=== PATIENT | male | born 1945 | race Caucasian/White ===

== ENCOUNTER → 2016-12-31 | Outpatient (CLI) | payer OTHER, MEDICARE ==
[~2016-12-31] VITALS: Ht 180.3 cm; Wt 115.7 kg
[~2016-12-31] MED LIST: ALEVE220 MG PO; LISINOPRIL10 MG PO; NORVASC 5 MG TAB5 MG PO
[2016-12-31 07:37] VITALS: BP 139/76
[2016-12-31 08:11] LABS: HEMATOCRIT 38.8 % (42.0-52.0); HEMOGLOBIN 13.2 gm/dL (14.0-18.0); MCH 30.9 pg (26.0-34.0); MCHC 33.9 g/dL (28.0-37.0); MCV 90.9 fL (80.0-100.0); RBC 4.27 mil/uL (4.50-6.00); RDW 13.7 % (10.5-14.5); WBC 5.6 thou/uL (4.0-11.0)
[2016-12-31 08:20] LABS: CALCIUM 8.6 mg/dL (8.5-10.1); CREATININE 1.4 mg/dL (0.7-1.3); POTASSIUM 4.1 mmol/L (3.5-5.1)
[2016-12-31 08:24] LABS: PROTIME 10.6 Seconds (9.3-11.4)
[2016-12-31 09:00] VITALS: BP 117/67
[2016-12-31 09:05] VITALS: BP 111/68
[2016-12-31 09:10] VITALS: BP 114/69
[2016-12-31 09:15] VITALS: BP 107/72
[2016-12-31 09:20] VITALS: BP 110/67
== END | disposition home or self-care (01) ==
LOC: CAT 07:01
PROVIDERS: Radiology Diagnostic Radiology
DX: M71.38 Other bursal cyst, other site (principal); M54.16 Radiculopathy, lumbar region; I10 Essential (primary) hypertension; Z96.652 Presence of left artificial knee joint; Z98.890 Other specified postprocedural states

== ENCOUNTER → 2017-08-04 | Outpatient (CLI) | payer OTHER, MEDICARE ==
[~2017-08-04] VITALS: Ht 180.3 cm; Wt 106.6 kg
[2017-08-04 08:38] VITALS: BP 158/70
[2017-08-04 09:15] VITALS: BP 117/73
[2017-08-04 09:25] VITALS: BP 122/74
[2017-08-04 09:30] VITALS: BP 120/68
[2017-08-04 09:34] VITALS: BP 109/59
[2017-08-04 09:35] VITALS: BP 95/66
== END | disposition home or self-care (01) ==
LOC: CAT 08:08
DX: M71.38 Other bursal cyst, other site (principal); I10 Essential (primary) hypertension

== ENCOUNTER → 2018-01-27 | Outpatient (CLI) | payer OTHER, MEDICARE ==
[2018-01-27] VITALS (8 sets, daily range): BP systolic 99–122; BP diastolic 55–63
[~2018-01-27] VITALS: Ht 177.8 cm; Wt 104.3 kg
== END | disposition home or self-care (01) ==
LOC: CAT 08:02
DX: M71.38 Other bursal cyst, other site (principal); I10 Essential (primary) hypertension; Z98.890 Other specified postprocedural states; Z96.652 Presence of left artificial knee joint; Z79.899 Other long term (current) drug therapy

== ENCOUNTER → 2018-12-15 | Outpatient (CLI) | payer OTHER, MEDICARE | END | disposition home or self-care (01) | LOC: CAT 09:09 | DX: M71.38 Other bursal cyst, other site (principal); Z79.899 Other long term (current) drug therapy ==